=== PATIENT | male | born 1995 | race Caucasian/White ===

== ENCOUNTER 2019-03-22 00:37 | Emergency (ER) | payer MEDICARE, MEDICAID ==
[~2019-03-22] VITALS: Ht 175.3 cm; Wt 79.4 kg
[2019-03-22 00:45] VITALS: BP 112/76
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
--- NOTE | 2019-03-22 01:15 | Emergency Room Report ---
History of Present Illness General Chief Complaint: Behavioral Complaint Source: Patient Present Illness HPI Patient is a 23-year-old transgender individual currently identifies as a male brought in by EMS after increased suicidal thoughts. Patient was reportedly with a therapist and began having increased agitation after the incident earlier in the day. Patient reportedly has had increased suicidal thoughts as well as thoughts of self-harm. Patient reports last hospitalization approximately 2 month ago. Patient denies any recent injury. Patient previously overdosed on medications. Allergies: Coded Allergies: No Known Allergies (Unverified , 03/22/19) Patient History Past Medical History: see triage record Reviewed Nursing Documentation: PMH: Agreed; PSxH: Agreed Nursing Documentation-PMH History Of Psychiatric Problem: Yes - dep Review of Systems All Other Systems: negative except mentioned in HPI Physical Exam Vital Signs Date Time Temp Pulse Resp B/P (MAP) Pulse Ox O2 Delivery O2 Flow Rate FiO2 03/22/19 00:42 98.4 78 18 109/76 (87) 100 Room Air Sp02 EP Interpretation: reviewed, normal General Appearance: alert/responsive, no apparent distress, GCS 15, non-toxic Head: atraumatic Eyes: PERRL, lids + conjunctiva normal ENT: hearing intact, no angioedema Neck: supple/symm/no masses, no meningismus Respiratory: effort normal, no wheezing, chest symmetrical Cardiovascular: regular rate, rhythm, no edema Cardiovascular #2: 2+ carotid (R), 2+ carotid (L), 2+ dorsalis pedis (R), 2+ dorsalis pedis (L) Gastrointestinal: non-tender, no mass, non-distended, no rebound/guarding, normal bowel sounds Musculoskeletal: gait & station normal, strength & tone normal, normal ROM, non -tender Neurologic: normal inspection, CN II-XII intact, oriented x3, sensory intact, normal speech Psychiatric: normal inspection, other - tearful Skin: no rash, well hydrated Lymphatic: normal inspection Medical Decision Making Diagnostic Impression: Primary Impression: Verbalizes suicidal thoughts ER Course Patient is a 23-year-old transgender individual identifies currently is a male who presented after increased suicidal thoughts. Differential diagnosis include was not limited to depression, psychosis among others. Because of complexity of patient's case laboratory testing and imaging studies were ordered. Patient's laboratory testing showed your injury to positive for marijuana. Laboratory testing was otherwise unremarkable. Patient is medically cleared for psychiatric placement. Patient was noted to have some suicidal thoughts and states that would like voluntary placement.Patient is currently seeing a therapist.Patient will likely be transferred for further psychiatric evaluation and treatment. Labs Test 03/22/19 01:10 03/22/19 01:20 Urine Color Yellow Urine Appearance Slightly cloudy Urine pH 6 (4.5-8.0) Urine Specific [place] 1.020 (1.005-1.035) Urine Protein Negative (NEGATIVE) Urine Glucose (UA) Negative (NEGATIVE) Urine Ketones Negative (NEGATIVE) Urine Blood 1+ (NEGATIVE) Urine Nitrite Negative (NEGATIVE) Urine Bilirubin Negative (NEGATIVE) Urine Urobilinogen 1 MG/DL (0.0-1.0) Urine Leukocyte Esterase Negative (NEGATIVE) Urine RBC 0-2 /HPF (0 - 0) Urine WBC 0-2 /HPF (0 - 0) Urine Squamous Epithelial Cells Moderate /LPF (NONE/OCC) Urine Bacteria Moderate /HPF (NONE) Urine HCG, Qualitative Negative (NEGATIVE) Urine Opiates Screen Negative (NEGATIVE) Urine Barbiturates Screen Negative (NEGATIVE) Phencyclidine (PCP) Screen Negative (NEGATIVE) Urine Amphetamines Screen Negative (NEGATIVE) Urine Benzodiazepines Screen Negative (NEGATIVE) Urine Cocaine Screen Negative (NEGATIVE) Urine Marijuana (THC) Screen Positive (NEGATIVE) White Blood Count 9.9 K/UL (4.8-10.8) Red Blood Count 4.61 M/UL (4.70-6.10) Hemoglobin 13.3 G/DL (14.2-18.0) Hematocrit 41.3 % (42.0-52.0) Mean Corpuscular Volume 90 FL (80-99) Mean Corpuscular Hemoglobin 28.9 PG (27.0-31.0) Mean Corpuscular Hemoglobin Concent 32.3 G/DL (32.0-36.0) Red Cell Distribution Width 12.5 % (11.6-14.8) Platelet Count 353 K/UL (150-450) Mean Platelet Volume 5.6 FL (6.5-10.1) Neutrophils (%) (Auto) 61.6 % (45.0-75.0) Lymphocytes (%) (Auto) 27.7 % (20.0-45.0) Monocytes (%) (Auto) 8.3 % (1.0-10.0) Eosinophils (%) (Auto) 1.8 % (0.0-3.0) Basophils (%) (Auto) 0.6 % (0.0-2.0) Sodium Level 142 MMOL/L (136-145) Potassium Level 3.7 MMOL/L (3.5-5.1) Chloride Level 105 MMOL/L (98-107) Carbon Dioxide Level 27 MMOL/L (21-32) Anion Gap 10 mmol/L (5-15) Blood Urea Nitrogen 7 mg/dL (7-18) Creatinine 0.8 MG/DL (0.55-1.30) Estimat Glomerular Filtration Rate > 60 mL/min (>60) Glucose Level 104 MG/DL (74-106) Calcium Level 9.2 MG/DL (8.5-10.1) Total Bilirubin 0.3 MG/DL (0.2-1.0) Aspartate Amino Transf (AST/SGOT) 14 U/L (15-37) Alanine Aminotransferase (ALT/SGPT) 16 U/L (12-78) Alkaline Phosphatase 94 U/L (46-116) Total Protein 8.0 G/DL (6.4-8.2) Albumin 4.3 G/DL (3.4-5.0) Globulin 3.7 g/dL Albumin/Globulin Ratio 1.2 (1.0-2.7) Salicylates Level 3.3 ug/mL (2.8-20) Acetaminophen Level < 2 MCG/ML (10-30) Serum Alcohol < 3 mg/dL Last Vital Signs Date Time Temp Pulse Resp B/P (MAP) Pulse Ox O2 Delivery O2 Flow Rate FiO2 03/22/19 00:42 98.4 78 18 109/76 (87) 100 Room Air Status: unchanged Disposition: XFER TO PSYCH HOSP/UNIT Condition: Stable Dilshad Tyler MD Mar 22, 2019 01:15
[2019-03-22 01:24] LABS: APPEARANCE,URINE SLIGHTLY CLOUDY; BILIRUBIN, URINE NEGATIVE (NEGATIVE); GLUCOSE, URINE (UA) NEGATIVE (NEGATIVE); KETONES,URINE NEGATIVE (NEGATIVE); LEUKOCYTE ESTERASE ,URINE NEGATIVE (NEGATIVE); NITRITE,URINE NEGATIVE (NEGATIVE); PH,URINE 6 (4.5-8.0); PROTEIN,URINE NEGATIVE (NEGATIVE); UROBILINOGEN,URINE 1 MG/DL (0.0-1.0)
[2019-03-22 01:31] LABS: BASOPHILS % (AUTO) 0.6 % (0.0-2.0); EOSINOPHILS % (AUTO) 1.8 % (0.0-3.0); HEMATOCRIT 41.3 % (42.0-52.0); HEMOGLOBIN 13.3 G/DL (14.2-18.0); LYMPHOCYTES % (AUTO) 27.7 % (20.0-45.0); MEAN CORPUSCULAR VOLUME 90 FL (80-99); MONOCYTES % (AUTO) 8.3 % (1.0-10.0); NEUTROPHILS % (AUTO) 61.6 % (45.0-75.0); PLATELET COUNT 353 K/UL (150-450); RED BLOOD COUNT 4.61 M/UL (4.70-6.10); RED CELL DISTRIBUTION WIDTH 12.5 % (11.6-14.8); WHITE BLOOD COUNT 9.9 K/UL (4.8-10.8)
[2019-03-22 01:43] LABS: ANION GAP 10 mmol/L (5-15); BLOOD UREA NITROGEN 7 mg/dL (7-18); CALCIUM 9.2 MG/DL (8.5-10.1); CARBON DIOXIDE 27 MMOL/L (21-32); CHLORIDE 105 MMOL/L (98-107); CREATININE 0.8 MG/DL (0.55-1.30); POTASSIUM 3.7 MMOL/L (3.5-5.1); SODIUM 142 MMOL/L (136-145)
[2019-03-22 01:44] LABS: COLOR,URINE YELLOW
[2019-03-22 01:47] LABS: ALANINE AMINOTRANSFERASE 16 U/L (12-78); ALBUMIN 4.3 G/DL (3.4-5.0); ALBUMIN/GLOBULIN RATIO 1.2 (1.0-2.7); ALKALINE PHOSPHATASE 94 U/L (46-116); ASPARTATE AMINO TRANSFERASE 14 U/L (15-37); BILIRUBIN,TOTAL 0.3 MG/DL (0.2-1.0)
--- NOTE | 2019-03-22 02:30 | NUR ---
ED Nurse Note: Pt resting with eyes closed, non-labored breathing. No further orders at this time. Will continue to monitor
[2019-03-22 03:30] VITALS: BP 125/82
--- NOTE | 2019-03-22 04:30 | NUR ---
ED Nurse Note: Pt arousable to name, offered food, water and toiletting, pt declined at this time. will continue to monitor.
[2019-03-22 06:39] VITALS: BP 125/80
--- NOTE | 2019-03-22 06:39 | NUR ---
ED Nurse Note: Pt resting with eyes closed, non-labored breathing. Placement found in psych facility, awaiting transfer. Will continue to monitor
--- NOTE | 2019-03-22 07:11 | NUR ---
HAND-OFF: Report given to ELMER Crespo.
--- NOTE | 2019-03-22 07:15 | NUR ---
ED Nurse Note: CASEY SITTER AT THE BED SIDE.
--- NOTE | 2019-03-22 07:27 | NUR ---
ED Nurse Note: Pt's belongings in psych locker #3
--- NOTE | 2019-03-22 07:59 | NUR ---
ED Nurse Note: PT STILL SLEEPING .BREAKFAST LEFT AT THE BED SIDE.
[2019-03-22] MEDS ORDERED: NKM (08:24)
--- NOTE | 2019-03-22 08:38 | NUR ---
ED Nurse Note: REPORT GIVEN TO SIOBHAN PAYNE OF [facility].
--- NOTE | 2019-03-22 08:39 | NUR ---
ED Nurse Note: DR PERALES NOTIFIED OF PT'S UTI. WAITING FOR NEW ORDERS.
[2019-03-22 08:45] VITALS: BP 133/70
[2019-03-22] MEDS ORDERED: CEPHALEXIN500 MG ORAL (08:53)
[2019-03-22] MEDS ORDERED: Cephalexin 500mg cap ORAL ONE (09:00)
--- NOTE | 2019-03-22 09:30 | NUR ---
ED Nurse Note: FREDYE AT THE BED SIDE SITTER.
[2019-03-22 10:28] VITALS: BP 129/72
--- NOTE | 2019-03-22 10:28 | NUR ---
ED Nurse Note: PT TRANSFERRED VIA AMBULANCE WITH [facility]. [facility]ONG[facility] SENT WITH PT. NO DISTRESS.
--- NOTE | 2019-03-22 10:35 | NUR ---
ED Nurse Note: D/C SITTER ORDER AT THE BEDSIDE. PT. TRANSFERRED TO [facility]
== END 2019-03-22 10:28 ==
LOC: EDBD 00:37 → EMR 01:27
DX: R45.851 Suicidal ideations (principal); F32.9 Major depressive disorder, single episode, unspecified; Z91.5 Personal history of self-harm
CPT/HCPCS: 36415; 80053; 80307; 81003; 81025; 85025; 87086; 99285; G0480; 80329

== ENCOUNTER 2019-11-05 14:12 | Emergency (ER) | payer MEDICARE, MEDICAID ==
[~2019-11-05] VITALS: Ht 172.7 cm; Wt 80.3 kg
[~2019-11-05 14:12] MED LIST: CEPHALEXIN500 MG ORAL; NKM
[2019-11-05 14:19] VITALS: BP 123/76
[2019-11-05] MEDS ORDERED: INVEGA SUS39 MG/0.25 IM (14:25)
--- NOTE | 2019-11-05 14:25 | NUR ---
ED Nurse Note: patient walked into ED from sober living facility, per patient his health regional account manager dropped him off here. patient reports he fell on the stairs and c/o pain on bilateral legs and lower back. patient denies any head injury. patient is alert awake x4 ambulatory, breathing unlabored and even, speaking in full sentences.
--- NOTE | 2019-11-05 14:42 | NUR ---
ED Nurse Note: patient taken to xray via wheelchair
[2019-11-05] MEDS ORDERED: Methocarbamol 750mg tab ORAL ONE (14:45)
[2019-11-05] MEDS ORDERED: Ketorolac 30mg Inj IM ONE (14:45)
--- NOTE | 2019-11-05 15:10 | NUR ---
ED Nurse Note: patient came back from xray in stable condition.
[2019-11-05] MEDS ORDERED: IBUPROFEN600 MG ORAL (15:20)
[2019-11-05] MEDS ORDERED: ROBAXIN-500MG ORAL (15:20)
--- NOTE | 2019-11-05 15:20 | Emergency Room Report ---
History of Present Illness General Chief Complaint: Multiple Trauma/Fall Source: Medical Record (Raul Patel) Present Illness HPI 24-year-old male with no significant past medical history who is coming from a sober living here complaining of multiple trauma. Patient reports that he has been living in sober living for the past 8 months and been clean off of methamphetamine, marijuana, and alcohol. Reports that he was working at night as he missed a step as it was dark and rolled down the stairs. Patient reports that his friend in sober living, earlier today witnessed the fall and reports there was no head injury. Denies loss of consciousness, and it appears to be atraumatic. Patient complains of bilateral hip pain, lumbar pain, knee pain. Denies any pain radiation rating a 10 out of 10. Denies tingling and numbness, saddle paresthesia, urinary or bowel incontinence. Patient is neurovascularly intact. Has not taken medication for symptom relief. Denies all other injuries. (Raul Patel) Allergies: Coded Allergies: ESCITALOPRAM (Verified Allergy, Unknown, 11/05/19) FLUOXETINE (Verified Allergy, Unknown, 11/05/19) PENICILLINS (Verified Allergy, Unknown, 11/05/19) ZIPRASIDONE (Verified Allergy, Unknown, 11/05/19) Patient History Past Medical History: see triage record Past Surgical History: none Pertinent Family History: none Immunizations: UTD Reviewed Nursing Documentation: PMH: Agreed; PSxH: Agreed (Raul Patel) Nursing Documentation-PMH Past Medical History: No History, Except For Hx Diabetes: Yes - pre dm (Raul Patel) Review of Systems All Other Systems: negative except mentioned in HPI (Raul Patel) Physical Exam Vital Signs Date Time Temp Pulse Resp B/P (MAP) Pulse Ox O2 Delivery O2 Flow Rate FiO2 11/05/19 14:19 98.2 76 18 123/76 (92) 96 Room Air Sp02 EP Interpretation: reviewed, normal General Appearance: no apparent distress, alert, GCS 15, non-toxic Head: normocephalic, atraumatic Eyes: bilateral eye normal inspection, bilateral eye PERRL ENT: hearing grossly normal, normal pharynx, no angioedema, normal voice Neck: full range of motion, supple, thyroid normal, no meningismus, no bony tend, supple/symm/no masses Respiratory: chest non-tender, lungs clear, normal breath sounds, no rhonchi, no respiratory distress, no retraction, no wheezing, speaking full sentences Cardiovascular #1: regular rate, rhythm, no edema, no murmur Cardiovascular #2: 2+ radial (R), 2+ radial (L), 2+ femoral (R), 2+ femoral (L) , 2+ dorsalis pedis (R), 2+ dorsalis pedis (L) Gastrointestinal: normal bowel sounds, non tender, soft, non-distended, no guarding, no rebound Rectal: deferred Genitourinary: no CVA tenderness Musculoskeletal: back normal, normal range of motion, no calf tenderness, pelvis stable, no lower extremity edema, non-tender Neurologic: alert, motor strength/tone normal, oriented x3, sensory intact, responsive, speech normal Psychiatric: judgement/insight normal, memory normal, mood/affect normal, no suicidal/homicidal ideation Skin: no rash Lymphatic: no adenopathy (Raul Patel) Medical Decision Making PA Attestation All diagnoses and treatment plans were reviewed and discussed with my supervising physician Dr. Aldana (Raul Patel) Diagnostic Impression: Primary Impression: Contusion, hip Qualified Codes: S70.00XA - Contusion of unspecified hip, initial encounter Additional Impressions: Lumbar strain Qualified Codes: S39.012A - Strain of muscle, fascia and tendon of lower back , initial encounter Knee contusion Qualified Codes: S80.00XA - Contusion of unspecified knee, initial encounter ER Course 24-year-old male with no significant past medical history who is coming from a sober living here complaining of multiple trauma. Patient reports that he has been living in sober living for the past 8 months and been clean off of methamphetamine, marijuana, and alcohol. Reports that he was working at night as he missed a step as it was dark and rolled down the stairs. Patient reports that his friend in sober living, earlier today witnessed the fall and reports there was no head injury. Denies loss of consciousness, and it appears to be atraumatic. Patient complains of bilateral hip pain, lumbar pain, knee pain. Denies any pain radiation rating a 10 out of 10. Denies tingling and numbness, saddle paresthesia, urinary or bowel incontinence. Patient is neurovascularly intact. Has not taken medication for symptom relief. Denies all other injuries. Ddx considered but are not limited to: Lumbar spine sprain, strain, fracture, contusion, neuropathy, hip fracture versus contusion, knee fracture versus knee contusion versus knee sprain Vital signs: are WNL, pt. is afebrile H&PE are most consistent with: Hip contusion, lumbar strain, knee contusion ORDERS: Lumbar spine x-ray, hip and pelvis x-ray bilaterally, bilateral knee x- ray, ibuprofen, Robaxin ER intervention: Toradol, Robaxin DISCHARGE: At this time pt. is stable for d/c to home. Will provide printed patient care instructions, and any necessary prescriptions. Care plan and follow up instructions have been discussed with the patient prior to discharge. Patient to follow-up with primary care provider, take medication as directed, if worsening symptoms return to the emergency room (Raul Patel) Other X-Ray Diagnostic Results Other X-Ray Diagnostic Results #1: X-Ray ordered: Hip and pelvis x-ray # of Views/Limited Vs Complete: 2 View Indication: Pain EP Interpretation: Yes LYNDSAY Xray: Interpretation reviewed, by supervising , and agrees with findings. Interpretation: no dislocation, no soft tissue swelling, no fractures Impression: No acute disease Electronically Signed by: Raul UMANA Scribe Text Comparison: IMPRESSION: No fracture or dislocation. Exam: XR RIGHT HIP Comparison: IMPRESSION: No fracture or dislocation. Other X-Ray Diagnostic Results #2: X-Ray ordered: Lumbar spine x-ray # of Views/Limited Vs Complete: 3 View Indication: Pain EP Interpretation: Yes LYNDSAY Xray: Interpretation reviewed, by supervising , and agrees with findings. Interpretation: no dislocation, no soft tissue swelling, no fractures Impression: No acute disease Electronically Signed by: Raul UMANA Scribe Text FINDINGS: No evidence of fracture or malalignment. The disc spaces appear within limits. IMPRESSION: No evidence of fracture or malalignment. Other X-Ray Diagnostic Results #3: X-Ray ordered: Right knee x-ray # of Views/Limited Vs Complete: 3 View Indication: Pain EP Interpretation: Yes LYNDSAY Xray: Interpretation reviewed, by supervising MD, and agrees with findings. Interpretation: no dislocation, no soft tissue swelling, no fractures Impression: No acute disease Electronically Signed by: Raul UMANA Scribe Text FINDINGS: No fracture, dislocation or joint effusion. The joint spaces appear within limits. IMPRESSION: No fracture, dislocation or joint effusion. Other X-Ray Diagnostic Results #4: X-Ray ordered: Left knee x-ray # of Views/Limited Vs Complete: 3 View Indication: Pain EP Interpretation: Yes PA Xray: Interpretation reviewed, by supervising MD, and agrees with findings. Interpretation: no dislocation, no soft tissue swelling, no fractures Impression: No acute disease Electronically Signed by: Raul UMANA Scribe Text No fracture, dislocation or joint effusion. The joint spaces appear within limits. IMPRESSION: No fracture, dislocation or joint effusion. (Raul Patel) Other X-Ray Diagnostic Results #1: Electronically Signed by: P A documentation of Xray reviewed by me and is accurate, Dick Aldana MD Other X-Ray Diagnostic Results #2: Electronically Signed by: P A documentation of Xray reviewed by me and is accurate, Dick Aldana MD Other X-Ray Diagnostic Results #3: Electronically Signed by: P A documentation of Xray reviewed by me and is accurate, Dick Aldana MD Other X-Ray Diagnostic Results #4: Electronically Signed by: P A documentation of Xray reviewed by me and is accurate, Dick Aldana MD (Dick Aldana MD) Last Vital Signs Date Time Temp Pulse Resp B/P (MAP) Pulse Ox O2 Delivery O2 Flow Rate FiO2 11/05/19 14:35 76 18 Room Air 11/05/19 14:19 98.2 123/76 96 Status: improved (Raul Patel) Disposition: HOME, SELF-CARE Condition: Stable Scripts Methocarbamol* (ROBAXIN-500*) 500 Mg Tablet 500 MG ORAL TID PRN for For Pain, #15 TAB 0 Refills Prov: Raul Patel 11/05/19 Ibuprofen* (MOTRIN*) 600 Mg Tablet 600 MG ORAL Q8H PRN for For Pain, #30 TAB 0 Refills Prov: Raul Patel 11/05/19 Referrals: NON PHYSICIAN (PCP) Patient Instructions: Contusion, [id number], Knee Pain, [id number], Lumbosacral Strain Additional Instructions: Take medication as directed, follow-up with your primary care provider, if worsening symptoms return to the emergency room Raul Patel Nov 05, 2019 15:19 Dick Aldana MD Nov 07, 2019 05:25
[2019-11-05 15:31] VITALS: BP 123/76
--- NOTE | 2019-11-05 15:31 | NUR ---
ER DISCHARGE NOTE: Patient is cleared to be discharged per NHUGN GLASER, pt is aox4, on room air, with stable vital signs. pt was given dc and prescription instructions, pt was able to verbalize understanding, pt id band removed without complications. pt is able to ambulate with steady gait. pt took all belongings.
--- NOTE | 2019-11-05 15:48 | Diagnostic Imaging Report ---
History: TRAUMA Exam: XR PELVIS Comparison: IMPRESSION: No fracture or dislocation. Symmetric appearing SI joints and pubic symphysis appear within normal limits. Exam: XR LEFT HIP Comparison: IMPRESSION: No fracture or dislocation. Exam: XR RIGHT HIP Comparison: IMPRESSION: No fracture or dislocation.
--- NOTE | 2019-11-05 15:51 | Diagnostic Imaging Report ---
History: TRAUMA Exam: XR L SPINE 2 views Comparison: None available FINDINGS: No evidence of fracture or malalignment. The disc spaces appear within limits. IMPRESSION: No evidence of fracture or malalignment.
--- NOTE | 2019-11-05 15:53 | Diagnostic Imaging Report ---
History: TRAUMA Exam: XR LEFT KNEE 3 views Comparison: None available FINDINGS: No fracture, dislocation or joint effusion. The joint spaces appear within limits. IMPRESSION: No fracture, dislocation or joint effusion.
--- NOTE | 2019-11-05 15:54 | Diagnostic Imaging Report ---
History: TRAUMA Exam: XR RIGHT KNEE 3 views Comparison: None available FINDINGS: No fracture, dislocation or joint effusion. The joint spaces appear within limits. IMPRESSION: No fracture, dislocation or joint effusion.
== END 2019-11-05 15:30 | disposition home or self-care (01) ==
LOC: EMR 14:38
DX: S70.00XA Contusion of unspecified hip, initial encounter (principal); S39.012A Strain of muscle, fascia and tendon of lower back, initial encounter; S80.00XA Contusion of unspecified knee, initial encounter; W10.9XXA Fall (on) (from) unspecified stairs and steps, initial encounter; Y92.9 Unspecified place or not applicable; R73.03 Prediabetes; Z88.0 Allergy status to penicillin; Z88.8 Allergy status to other drugs, medicaments and biological substances
CPT/HCPCS: 72020; 73521; 73562; 96372; 99284; J1885